=== PATIENT | male | born 1985 | race American Indian/Alaskan Native ===

== ENCOUNTER 2020-01-11 18:29 | Inpatient (IN) | payer OTHER ==
--- NOTE | 2020-01-11 18:38 | Emergency Department Report ---
Blank Doc - Documentation Documentation: 34-year-old male that presents with fatigue and uncontrolled DM. This initial assessment/diagnostic orders/clinical plan/treatment(s) is/are subject to change based on patient's health status, clinical progression and re- assessment by fellow clinical providers in the ED. Further treatment and workup at subsequent clinical providers discretion. Patient/guardians urged not to elope from the ED as their condition may be serious if not clinically assessed and managed. Initial orders include: 1- Patient sent to MAIN ED for further evaluation and treatment 2- labs 3- UA
[2020-01-11 19:44] LABS: Bilirubin,Urine NEG (Negative); Blood,Urine SM (Negative); Color,Urine Straw (Yellow); Mucus,Urine FEW /HPF; Protein,Urine <15 mg/dL mg/dL (Negative); Urobilinogen,Urine < 2.0 mg/dL (<2.0); WBC,Urine < 1.0 /HPF (0.0-6.0)
[2020-01-11 20:55] LABS: Basophils # (Auto) 0.1 K/mm3 (0.0-0.1); Basophils % (Auto) 0.7 % (0.0-1.8); Eosinophils # (Auto) 0.1 K/mm3 (0.0-0.4); Eosinophils % (Auto) 1.7 % (0.0-4.3); Hematocrit 45.6 % (35.5-45.6); Hemoglobin 15.1 gm/dl (11.8-15.2); Lymphocytes # (Auto) 2.1 K/mm3 (1.2-5.4); Lymphocytes % (Auto) 29.4 % (13.4-35.0); Mean Corpuscular HGB Conc 33 % (32-34); Mean Corpuscular Volume 81 fl (84-94); Monocytes # (Auto) 0.8 K/mm3 (0.0-0.8); Monocytes % (Auto) 11.6 % (0.0-7.3); Platelet Count 250 K/mm3 (140-440); Red Blood Count 5.63 M/mm3 (3.65-5.03); Red Cell Distribution Width 12.4 % (13.2-15.2)
[2020-01-11 20:58] LABS: BUN/Creatinine Ratio 12; Blood Urea Nitrogen 16 mg/dL (9-20); Calcium 9.4 mg/dL (8.4-10.2); Hemolysis Index 28
[2020-01-11] MEDS ORDERED: DEXTROSE 50% IN WATER (25GM) 50 ML SYRINGE IV PRN (22:37)
[2020-01-11] MEDS ORDERED: SODIUM CHLORIDE 0.9% 1000 ML 1,000 ML IV ONE ×3 (22:37→22:40)
[2020-01-11] MEDS ORDERED: INSULIN REGULAR, HUMAN 100 UNITS/1 ML IV ONE (22:40)
--- NOTE | 2020-01-11 22:52 | Emergency Department Report ---
ED General Adult HPI - General Chief complaint: Hyperglycemia Stated complaint: SUGAR HIGH Time Seen by Provider: 01/11/20 18:39 Source: patient Mode of arrival: Ambulatory Limitations: No Limitations - History of Present Illness Initial comments: 34-year-old male with no known past medical history presents to the hospital complaining of elevated glucose. 2 weeks ago patient was seen at a clinic and states his sugar was high but was told to decrease his sugar intake in diet. He was not started on meds.Patient has not been monitoring his sugar since that visit. Today he used his dad's Accu-Chek machine and his sugar was 494 at home. Patient has been experiencing increased urinary frequency, thirst, and fatigue. He denies fever, dysuria, nausea, vomiting, or diarrhea. - Related Data Home Medications Medication Instructions Recorded Confirmed Last Taken No Known Home Medications [No 01/11/20 01/11/20 Unknown Reported Home Medications] Allergies Allergy/AdvReac Type Severity Reaction Status Date / Time No Known Allergies Allergy Verified 01/11/20 18:31 ED Review of Systems ROS: Stated complaint: SUGAR HIGH Other details as noted in HPI Comment: All other systems reviewed and negative ED Past Medical Hx - Past Medical History Previous Medical History?: No - Surgical History Past Surgical History?: No - Social History Smoking Status: Current Some Day Smoker Substance Use Type: Alcohol - Medications Home Medications: Home Medications Medication Instructions Recorded Confirmed Last Taken Type No Known Home Medications [No 01/11/20 01/11/20 Unknown History Reported Home Medications] ED Physical Exam - General Limitations: No Limitations - Other Other exam information: General: No acute distress Head: Atraumatic Eyes: normal appearance ENT: Moist mucous membranes Neck: Normal appearance, no midline tenderness Chest: Clear to auscultation bilaterally CV: Regular rate and rhythm Abdomen: Soft, normal bowel sounds, nontender, nondistended, no rebound or guarding Back: Normal inspection Extremity: Normal inspection, full range of motion Neuro: Alert O x 3, no facial asymmetry, speech clear, no gross motor sensory deficit Psych: Appropriate behavior Skin: No rash ED Course Vital Signs 01/11/20 01/11/20 01/11/20 18:38 18:39 22:59 Temperature 98.0 F 98 F Pulse Rate 109 H 110 H Respiratory 20 20 Rate Blood Pressure 147/95 147/95 O2 Sat by Pulse 97 96 98 Oximetry 01/11/20 23:00 Temperature Pulse Rate 109 H Respiratory Rate Blood Pressure O2 Sat by Pulse 98 Oximetry ED Medical Decision Making - Lab Data Result diagrams: 01/11/20 20:18 01/11/20 20:18 Lab Results 01/11/20 01/11/20 01/11/20 Range/Units 18:47 20:18 20:18 WBC 7.0 (4.5-11.0) K/mm3 RBC 5.63 H (3.65-5.03) M/mm3 Hgb 15.1 (11.8-15.2) gm/dl Hct 45.6 (35.5-45.6) % MCV 81 L (84-94) fl MCH 27 L (28-32) pg MCHC 33 (32-34) % RDW 12.4 L (13.2-15.2) % Plt Count 250 (140-440) K/mm3 Lymph % (Auto) 29.4 (13.4-35.0) % [place] % (Auto) 11.6 H (0.0-7.3) % Eos % (Auto) 1.7 (0.0-4.3) % Baso % (Auto) 0.7 (0.0-1.8) % Lymph # 2.1 (1.2-5.4) K/mm3 [place] # 0.8 (0.0-0.8) K/mm3 Eos # 0.1 (0.0-0.4) K/mm3 Baso # 0.1 (0.0-0.1) K/mm3 Seg Neutrophils % 56.6 (40.0-70.0) % Seg Neutrophils # 4.0 (1.8-7.7) K/mm3 VBG pH (7.320-7.420) Sodium 126 L (137-145) mmol/L Potassium 5.6 H (3.6-5.0) mmol/L Chloride 86.5 L (98-107) mmol/L Carbon Dioxide 15 L (22-30) mmol/L Anion Gap 30 mmol/L BUN 16 (9-20) mg/dL Creatinine 1.3 (0.8-1.5) mg/dL Estimated GFR > 60 ml/min BUN/Creatinine Ratio 12 % Glucose 631 H* (75-100) mg/dL POC Glucose 441 H (70-105) Calcium 9.4 (8.4-10.2) mg/dL Urine Color (Yellow) Urine Turbidity (Clear) Urine pH (5.0-7.0) Ur Specific [place] (1.003-1.030) Urine Protein (Negative) mg/dL Urine Glucose (UA) (Negative) mg/dL Urine Ketones (Negative) mg/dL Urine Blood (Negative) Urine Nitrite (Negative) Urine Bilirubin (Negative) Urine Urobilinogen (<2.0) mg/dL Ur Leukocyte Esterase (Negative) Urine WBC (Auto) (0.0-6.0) /HPF Urine RBC (Auto) (0.0-6.0) /HPF Urine Mucus /HPF 01/11/20 01/11/20 01/11/20 Range/Units 20:18 22:53 Unknown WBC (4.5-11.0) K/mm3 RBC (3.65-5.03) M/mm3 Hgb (11.8-15.2) gm/dl Hct (35.5-45.6) % MCV (84-94) fl MCH (28-32) pg MCHC (32-34) % RDW (13.2-15.2) % Plt Count (140-440) K/mm3 Lymph % (Auto) (13.4-35.0) % [place] % (Auto) (0.0-7.3) % Eos % (Auto) (0.0-4.3) % Baso % (Auto) (0.0-1.8) % Lymph # (1.2-5.4) K/mm3 [place] # (0.0-0.8) K/mm3 Eos # (0.0-0.4) K/mm3 Baso # (0.0-0.1) K/mm3 Seg Neutrophils % (40.0-70.0) % Seg Neutrophils # (1.8-7.7) K/mm3 VBG pH 7.248 L (7.320-7.420) Sodium (137-145) mmol/L Potassium (3.6-5.0) mmol/L Chloride (98-107) mmol/L Carbon Dioxide (22-30) mmol/L Anion Gap mmol/L BUN (9-20) mg/dL Creatinine (0.8-1.5) mg/dL Estimated GFR ml/min BUN/Creatinine Ratio % Glucose (75-100) mg/dL POC Glucose 426 H (70-105) Calcium (8.4-10.2) mg/dL Urine Color Straw (Yellow) Urine Turbidity Clear (Clear) Urine pH 5.0 (5.0-7.0) Ur Specific [place] 1.029 (1.003-1.030) Urine Protein <15 mg/dl (Negative) mg/dL Urine Glucose (UA) >=500 (Negative) mg/dL Urine Ketones 80 (Negative) mg/dL Urine Blood Sm (Negative) Urine Nitrite Neg (Negative) Urine Bilirubin Neg (Negative) Urine Urobilinogen < 2.0 (<2.0) mg/dL Ur Leukocyte Esterase Neg (Negative) Urine WBC (Auto) < 1.0 (0.0-6.0) /HPF Urine RBC (Auto) 2.0 (0.0-6.0) /HPF Urine Mucus Few /HPF - Medical Decision Making Patient apparently with hyperglycemia 2 weeks ago but never started on medications and now presents with DKA. Mild acidosis noted. Insulin bolus initially ordered but canceled. Started on IV insulin drip, normal saline hydration ordered in the ED. Hospitalist to admit - Differential Diagnosis DKA, diabetes, UTI Critical Care Time: No Critical care attestation.: If time is entered above; I have spent that time in minutes in the direct care of this critically ill patient, excluding procedure time. ED Disposition Clinical Impression: DKA (diabetic ketoacidoses), Diabetes mellitus, new onset Disposition: DC-01 TO HOME OR SELFCARE Is pt being admited?: Yes Does the pt Need Aspirin: No Condition: Stable Time of Disposition: 22:48 (Dr Jarrell/hosp)
[2020-01-11] MEDS ORDERED: INSULIN REGULAR, HUMAN 100 UNITS in SODIUM CHLORIDE 0.9% 99 ML IV SCH (23:00)
[2020-01-11] MEDS ORDERED: ONDANSETRON 4 MG/2 ML INJ IV PRN (23:09)
[2020-01-11] MEDS ORDERED: ACETAMINOPHEN 325 MG TAB PO PRN (23:09)
--- NOTE | 2020-01-11 23:15 | History and Physical Report ---
History of Present Illness History of present illness: 34-year-old male with no medical problem comes emergency room for evaluation. He said he was not feeling well, he went to the clinic last week Wednesday, his blood sugar was high, he was told to decrease his sweet intake and also his carbohydrate and increase water intake. He states he has been doing this regimen however his symptoms have not improved. He checked his blood sugar today using his father's glucometer, it read high. He is also been having urinary frequency thirst fatigue. In the emergency room was found to be in DKA, started on insulin drip, patient will be admitted for further care Review Of Systems: Constitutional: no weight loss, fever, chills Ears, eyes, nose, mouth and throat: no nasal congestion, no nasal discharge, no sinus pressure, blurry vision, diplopia Neck: No neck pain or rigidity. Cardiovascular: No palpitations, chest pain Respiratory: No shortness of breath, cough Gastrointestinal: No hematochezia Genitourinary : no dysuria, frequency Musculoskeletal: no muscle ache , joint pain Integumentary: no rash, no pruritis Neurological: no parathesias, focal weakness Endocrine: no cold or heat intolerance Hematologic/Lymphatic: no easy bruising, no easy bleeding, no gland swelling Allergic/Immunologic: no urticaria, no angioedema. PAST MEDICAL HISTORY: None PAST SURGICAL HISTORY: None SOCIAL HISTORY: Denies alcohol, drugs, smokes 1-1/2 packs a day FAMILY HISTORY: Hypertension Medications and Allergies Allergies Allergy/AdvReac Type Severity Reaction Status Date / Time No Known Allergies Allergy Verified 01/11/20 18:31 Home Medications Medication Instructions Recorded Confirmed Last Taken Type Insulin NPH/Regular [NovoLIN 70/30] 25 unit SUB-Q 1200 #1 vial 01/14/20 Unknown Rx Active Meds: Active Medications Acetaminophen (Tylenol) 650 mg PO Q4H PRN PRN Reason: Pain MILD(1-3)/Fever >100.5/HAQ Dextrose (D50w (25gm) Syringe) 0 ml IV Q30MIN PRN; Protocol PRN Reason: Hypoglycemia Enoxaparin Sodium (Enoxaparin) 30 mg SUB-Q QDAY MEKA Insulin Human Regular 100 (units/ Sodium Chloride) 100 mls @ 1 mls/hr IV TITR MEKA; Protocol Sodium Chloride (Nacl 0.9% 1000 Ml) 1,000 mls @ 999 mls/hr IV BOLUS ONE Stop: 01/11/20 23:37 Sodium Chloride (Nacl 0.9% 1000 Ml) 1,000 mls @ 999 mls/hr IV BOLUS ONE Stop: 01/11/20 23:40 Sodium Chloride (Nacl 0.9% 1000 Ml) 1,000 mls @ 999 mls/hr IV BOLUS ONE Stop: 01/11/20 23:40 Sodium Chloride (Nacl 0.9% 1000 Ml) 1,000 mls @ 150 mls/hr IV DIRECT MEKA Dextrose/Sodium Chloride (D5/0.45ns) 1,000 mls @ 150 mls/hr IV DIRECT MEKA Ondansetron HCl (Zofran) 4 mg IV Q8H PRN PRN Reason: Nausea And Vomiting Sodium Chloride (Sodium Chloride Flush Syringe 10 Ml) 10 ml IV BID MEKA Sodium Chloride (Sodium Chloride Flush Syringe 10 Ml) 10 ml IV PRN PRN PRN Reason: LINE FLUSH Exam - Physical Exam Narrative exam: Gen. appearance: Patient lying in bed, no apparent distress HEENT: Normocephalic, atraumatic, pupils equally round and reactive to light, extraocular movement intact, and no sclericterus,. No JVD or thyromegaly or nodule,neck supple, no carotid bruit ,mucous membranes moist, no exudate or erythema Heart: S1, S2, regular rate and rhythm Lungs: Clear bilaterally, breathing comfortable Abdomen: Positive bowel sounds, nontender, nondistended, no organomegaly Extremity: no edema, cyanosis, clubbing Skin: No rash, nodules, warm, dry Neuro: Cranial nerves II to XII intact, speech is fluent, moves extremities, sensory intact - Constitutional Vitals: Temp Pulse Resp BP Pulse Ox 98 F 109 H 20 147/95 98 01/11/20 18:39 01/11/20 23:00 01/11/20 18:39 01/11/20 18:39 01/11/20 23:00 Results - Labs CBC & Chem 7: 01/11/20 20:18 01/13/20 12:00 Labs: Abnormal lab results 01/11/20 01/11/20 01/11/20 Range/Units 18:47 20:18 20:18 RBC 5.63 H (3.65-5.03) M/mm3 MCV 81 L (84-94) fl MCH 27 L (28-32) pg RDW 12.4 L (13.2-15.2) % [place] % (Auto) 11.6 H (0.0-7.3) % VBG pH (7.320-7.420) Sodium 126 L (137-145) mmol/L Potassium 5.6 H (3.6-5.0) mmol/L Chloride 86.5 L (98-107) mmol/L Carbon Dioxide 15 L (22-30) mmol/L Glucose 631 H* (75-100) mg/dL POC Glucose 441 H (70-105) 01/11/20 01/11/20 Range/Units 20:18 22:53 RBC (3.65-5.03) M/mm3 MCV (84-94) fl MCH (28-32) pg RDW (13.2-15.2) % [place] % (Auto) (0.0-7.3) % VBG pH 7.248 L (7.320-7.420) Sodium (137-145) mmol/L Potassium (3.6-5.0) mmol/L Chloride (98-107) mmol/L Carbon Dioxide (22-30) mmol/L Glucose (75-100) mg/dL POC Glucose 426 H (70-105) Assessment and Plan Assessment DKA/new onset diabetes Start DKA protocol with insulin drip Start IV fluids, check serial chemistry, blood sugar Check hemoglobin A1c, consult dietitian, critical care Hyperkalemia Monitor potassium level Pseudohyponatremia IV fluid, monitor chemistry DVT prophylaxis
[2020-01-11] MEDS ORDERED: D5W/0.45% NACL 1,000 ML IV SCH (23:45)
[2020-01-12 01:12] LABS: BUN/Creatinine Ratio 13; Blood Urea Nitrogen 17 mg/dL (9-20); Calcium 9.2 mg/dL (8.4-10.2); Hemolysis Index 23
[2020-01-12] MEDS: SODIUM CHLORIDE 0.9% 1000 ML 1,000 ML IV SCH ×2 (01:26→23:09)
[2020-01-12] MEDS ORDERED: D5W/0.45% NACL/KCL 20 MEQ 20 MEQ/1,000 ML BAG IV ONE ×2 (02:40→11:03)
[2020-01-12] MEDS: D5W/0.45% NACL/KCL 20 MEQ 20 MEQ/1,000 ML BAG IV SCH ×2 (03:00→11:12)
[2020-01-12 03:03] LABS: BUN/Creatinine Ratio 12; Blood Urea Nitrogen 14 mg/dL (9-20); Calcium 8.5 mg/dL (8.4-10.2); Hemolysis Index 12
[2020-01-12 05:51] LABS: BUN/Creatinine Ratio 12; Blood Urea Nitrogen 12 mg/dL (9-20); Calcium 8.7 mg/dL (8.4-10.2); Hemolysis Index 14
[2020-01-12 07:36] LABS: BUN/Creatinine Ratio 11; Blood Urea Nitrogen 11 mg/dL (9-20); Calcium 8.8 mg/dL (8.4-10.2); Hemolysis Index 6
[2020-01-12] MEDS ORDERED: ENOXAPARIN 30 MG/0.3 ML INJ SUB-Q SCH (10:00)
[2020-01-12] MEDS ORDERED: ENOXAPARIN 40 MG/0.4 ML INJ SUB-Q ONE (11:08)
[2020-01-12] MEDS: ENOXAPARIN 40 MG/0.4 ML INJ SUB-Q SCH (11:13)
[2020-01-12 11:25] LABS: BUN/Creatinine Ratio 10; Blood Urea Nitrogen 9 mg/dL (9-20); Calcium 8.7 mg/dL (8.4-10.2); Hemolysis Index 32
[2020-01-12 16:00] LABS: BUN/Creatinine Ratio 9; Blood Urea Nitrogen 7 mg/dL (9-20); Calcium 8.9 mg/dL (8.4-10.2); Hemolysis Index 4
--- NOTE | 2020-01-12 18:33 | Progress Note ---
Assessment and Plan - Patient Problems (1) DKA (diabetic ketoacidoses) Current Visit: Yes Status: Acute Plan to address problem: Patient DKA has resolved. Gap is closed. Electrolytes within normal limits. Patient Accu-Cheks remain suboptimally controlled. Will increase 7030 to 23 units twice daily. Will further titrate up for weight-based. We will treat on the low side to ensure prevention of hypoglycemia. Anticipated discharge is a.m. Patient told Porten to follow with primary care physician to continue insulin regime (2) Diabetes mellitus, new onset Current Visit: Yes Status: Acute Plan to address problem: Patient new onset diabetes. Will further change and titrate insulin accordingly. Subjective Date of service: 01/12/20 Principal diagnosis: DKA Interval history: Patient 44-year-old male presented to ED with polyuria polydipsia. Found to be in DKA. Patient was started on insulin drip with Accu-Cheks of 637. Now on follow-up. Patient is gap is closed no longer acidotic no longer in DKA will place patient on insulin 70/30 and sliding scale insulin. Patient no longer needs to have insulin drip. Objective - Constitutional Vitals: Vital Signs - 12hr 01/12/20 01/12/20 01/12/20 07:00 08:00 09:00 Pulse Rate 74 66 72 Respiratory Rate Blood Pressure 123/77 123/83 130/86 Blood Pressure [Left] O2 Sat by Pulse Oximetry 01/12/20 01/12/20 01/12/20 10:00 11:00 11:07 Pulse Rate 68 69 69 Respiratory 16 Rate Blood Pressure 112/59 117/77 Blood Pressure 117/77 [Left] O2 Sat by Pulse 97 84 Oximetry 01/12/20 01/12/20 01/12/20 12:00 13:00 14:00 Pulse Rate 64 72 87 Respiratory Rate Blood Pressure 133/84 131/78 132/73 Blood Pressure [Left] O2 Sat by Pulse 98 99 98 Oximetry 01/12/20 01/12/20 01/12/20 15:00 16:00 17:00 Pulse Rate 65 67 70 Respiratory Rate Blood Pressure 127/77 137/81 127/73 Blood Pressure [Left] O2 Sat by Pulse 99 100 96 Oximetry 01/12/20 18:00 Pulse Rate 75 Respiratory Rate Blood Pressure 138/82 Blood Pressure [Left] O2 Sat by Pulse 98 Oximetry General appearance: Present: no acute distress, well-nourished - EENT Eyes: PERRL, EOM intact ENT: hearing intact, clear oral mucosa Ears: bilateral: normal - Neck Neck: supple, normal ROM - Respiratory Respiratory effort: normal Respiratory: bilateral: CTA - Breasts Breasts: normal - Cardiovascular Rhythm: regular Heart Sounds: Present: S1 & S2. Absent: gallop, rub Extremities: pulses intact, No edema, normal color, Full ROM - Gastrointestinal General gastrointestinal: Present: soft, non-tender, non-distended, normal bowel sounds - Genitourinary Male genitourinary: normal - Integumentary Integumentary: clear, warm, dry - Musculoskeletal Musculoskeletal: 1, strength equal bilaterally - Neurologic Neurologic: moves all extremities - Psychiatric Psychiatric: memory intact, appropriate mood/affect, intact judgment & insight - Labs CBC & Chem 7: 01/11/20 20:18 01/13/20 05:48 Labs: Abnormal lab results 01/11/20 01/11/20 01/11/20 Range/Units 18:47 20:18 20:18 RBC 5.63 H (3.65-5.03) M/mm3 MCV 81 L (84-94) fl MCH 27 L (28-32) pg RDW 12.4 L (13.2-15.2) % [place] % (Auto) 11.6 H (0.0-7.3) % VBG pH (7.320-7.420) Sodium 126 L (137-145) mmol/L Potassium 5.6 H (3.6-5.0) mmol/L Chloride 86.5 L (98-107) mmol/L Carbon Dioxide 15 L (22-30) mmol/L BUN (9-20) mg/dL Glucose 631 H* (75-100) mg/dL POC Glucose 441 H (70-105) Hemoglobin A1c (4-6) % 01/11/20 01/11/20 01/12/20 Range/Units 20:18 22:53 00:02 RBC (3.65-5.03) M/mm3 MCV (84-94) fl MCH (28-32) pg RDW (13.2-15.2) % [place] % (Auto) (0.0-7.3) % VBG pH 7.248 L (7.320-7.420) Sodium (137-145) mmol/L Potassium (3.6-5.0) mmol/L Chloride (98-107) mmol/L Carbon Dioxide (22-30) mmol/L BUN (9-20) mg/dL Glucose (75-100) mg/dL POC Glucose 426 H (70-105) Hemoglobin A1c 13.2 H (4-6) % 01/12/20 01/12/20 01/12/20 Range/Units 00:08 00:34 01:37 RBC (3.65-5.03) M/mm3 MCV (84-94) fl MCH (28-32) pg RDW (13.2-15.2) % [place] % (Auto) (0.0-7.3) % VBG pH (7.320-7.420) Sodium 134 L D (137-145) mmol/L Potassium (3.6-5.0) mmol/L Chloride 96.7 L (98-107) mmol/L Carbon Dioxide 16 L (22-30) mmol/L BUN (9-20) mg/dL Glucose 374 H (75-100) mg/dL POC Glucose 369 H 262 H (70-105) Hemoglobin A1c (4-6) % 01/12/20 01/12/20 01/12/20 Range/Units 02:35 02:39 03:43 RBC (3.65-5.03) M/mm3 MCV (84-94) fl MCH (28-32) pg RDW (13.2-15.2) % [place] % (Auto) (0.0-7.3) % VBG pH (7.320-7.420) Sodium 136 L (137-145) mmol/L Potassium (3.6-5.0) mmol/L Chloride (98-107) mmol/L Carbon Dioxide 16 L (22-30) mmol/L BUN (9-20) mg/dL Glucose 223 H (75-100) mg/dL POC Glucose 232 H 185 H (70-105) Hemoglobin A1c (4-6) % 01/12/20 01/12/20 01/12/20 Range/Units 04:39 05:13 05:38 RBC (3.65-5.03) M/mm3 MCV (84-94) fl MCH (28-32) pg RDW (13.2-15.2) % [place] % (Auto) (0.0-7.3) % VBG pH (7.320-7.420) Sodium 136 L (137-145) mmol/L Potassium (3.6-5.0) mmol/L Chloride (98-107) mmol/L Carbon Dioxide 15 L (22-30) mmol/L BUN (9-20) mg/dL Glucose 200 H (75-100) mg/dL POC Glucose 248 H 233 H (70-105) Hemoglobin A1c (4-6) % 01/12/20 01/12/20 01/12/20 Range/Units 06:37 07:10 08:07 RBC (3.65-5.03) M/mm3 MCV (84-94) fl MCH (28-32) pg RDW (13.2-15.2) % [place] % (Auto) (0.0-7.3) % VBG pH (7.320-7.420) Sodium (137-145) mmol/L Potassium (3.6-5.0) mmol/L Chloride (98-107) mmol/L Carbon Dioxide 18 L (22-30) mmol/L BUN (9-20) mg/dL Glucose 164 H (75-100) mg/dL POC Glucose 194 H 183 H (70-105) Hemoglobin A1c (4-6) % 01/12/20 01/12/20 01/12/20 Range/Units 09:14 09:16 10:32 RBC (3.65-5.03) M/mm3 MCV (84-94) fl MCH (28-32) pg RDW (13.2-15.2) % [place] % (Auto) (0.0-7.3) % VBG pH (7.320-7.420) Sodium (137-145) mmol/L Potassium (3.6-5.0) mmol/L Chloride (98-107) mmol/L Carbon Dioxide 17 L (22-30) mmol/L BUN (9-20) mg/dL Glucose 161 H (75-100) mg/dL POC Glucose 181 H 171 H (70-105) Hemoglobin A1c (4-6) % 01/12/20 01/12/20 01/12/20 Range/Units 10:33 10:34 12:56 RBC (3.65-5.03) M/mm3 MCV (84-94) fl MCH (28-32) pg RDW (13.2-15.2) % [place] % (Auto) (0.0-7.3) % VBG pH (7.320-7.420) Sodium (137-145) mmol/L Potassium (3.6-5.0) mmol/L Chloride (98-107) mmol/L Carbon Dioxide (22-30) mmol/L BUN (9-20) mg/dL Glucose (75-100) mg/dL POC Glucose 275 H 290 H 292 H (70-105) Hemoglobin A1c (4-6) % 01/12/20 01/12/20 01/12/20 Range/Units 12:59 13:04 14:45 RBC (3.65-5.03) M/mm3 MCV (84-94) fl MCH (28-32) pg RDW (13.2-15.2) % [place] % (Auto) (0.0-7.3) % VBG pH (7.320-7.420) Sodium 136 L (137-145) mmol/L Potassium (3.6-5.0) mmol/L Chloride (98-107) mmol/L Carbon Dioxide 19 L (22-30) mmol/L BUN 7 L (9-20) mg/dL Glucose 212 H (75-100) mg/dL POC Glucose 345 H 200 H (70-105) Hemoglobin A1c (4-6) % 01/12/20 01/12/20 01/12/20 Range/Units 14:45 15:00 17:43 RBC (3.65-5.03) M/mm3 MCV (84-94) fl MCH (28-32) pg RDW (13.2-15.2) % [place] % (Auto) (0.0-7.3) % VBG pH 7.245 L (7.320-7.420) Sodium (137-145) mmol/L Potassium (3.6-5.0) mmol/L Chloride (98-107) mmol/L Carbon Dioxide (22-30) mmol/L BUN (9-20) mg/dL Glucose 213 H (75-100) mg/dL POC Glucose 242 H (70-105) Hemoglobin A1c (4-6) %
[2020-01-12] MEDS ORDERED: DEXTROSE 50% IN WATER (25GM) 50 ML SYRINGE IV PRN (18:36)
[2020-01-12 22:39] LABS: BUN/Creatinine Ratio 9; Blood Urea Nitrogen 8 mg/dL (9-20); Calcium 9.1 mg/dL (8.4-10.2); Hemolysis Index 9
[2020-01-12] MEDS: INSULIN LISPRO 100 UNIT/ML SUB-Q SCH (23:08)
[2020-01-13 00:11] LABS: BUN/Creatinine Ratio 9; Blood Urea Nitrogen 7 mg/dL (9-20); Calcium 8.7 mg/dL (8.4-10.2); Hemolysis Index 5
[2020-01-13 06:34] LABS: BUN/Creatinine Ratio 9; Blood Urea Nitrogen 7 mg/dL (9-20); Calcium 8.6 mg/dL (8.4-10.2); Hemolysis Index 4
[2020-01-13] MEDS: INSULIN LISPRO 100 UNIT/ML SUB-Q SCH ×4 (08:05→22:19)
[2020-01-13] MEDS: SODIUM CHLORIDE 0.9% 1000 ML 1,000 ML IV SCH ×2 (08:26→15:33)
--- NOTE | 2020-01-13 09:56 | Progress Note ---
Assessment and Plan - Patient Problems (1) DKA (diabetic ketoacidoses) Current Visit: Yes Status: Acute Plan to address problem: Patient DKA has resolved. Gap is closed. Electrolytes within normal limits. Patient Accu-Cheks remain suboptimally controlled. Will increase 7030 to 23 units twice daily. Will further titrate up for weight-based. We will treat on the low side to ensure prevention of hypoglycemia. Anticipated discharge is a.m. Patient told Kenaen to follow with primary care physician to continue insulin regime (2) Diabetes mellitus, new onset Current Visit: Yes Status: Acute History Interval history: Patient improved today. No more nausea no polyuria no polydipsia. Gap is closed. Hospital course uncomplicated. Patient tolerated subcutaneous insulin. Hospitalist Physical - Constitutional Vitals: Temp Pulse Resp BP Pulse Ox 98.4 F 85 18 107/57 97 01/13/20 03:26 01/13/20 08:27 01/13/20 03:26 01/13/20 08:27 01/13/20 08:27 General appearance: Present: no acute distress, well-nourished - EENT Eyes: Present: PERRL, EOM intact ENT: hearing intact, clear oral mucosa, dentition normal - Neck Neck: Present: supple, normal ROM - Respiratory Respiratory: bilateral: CTA - Cardiovascular Rhythm: regular - Extremities Extremities: no ischemia, pulses intact, pulses symmetrical Peripheral Pulses: within normal limits - Abdominal General gastrointestinal: soft, non-tender, non-distended - Integumentary Integumentary: Present: clear, warm, dry - Psychiatric Psychiatric: appropriate mood/affect, intact judgment & insight, memory intact - Neurologic Neurologic: CNII-XII intact, moves all extremities Results - Labs CBC & Chem 7: 01/11/20 20:18 01/13/20 05:48 Labs: Laboratory Last Values WBC 7.0 K/mm3 (4.5-11.0) 01/11/20 20:18 RBC 5.63 M/mm3 (3.65-5.03) H 01/11/20 20:18 Hgb 15.1 gm/dl (11.8-15.2) 01/11/20 20:18 Hct 45.6 % (35.5-45.6) 01/11/20 20:18 MCV 81 fl (84-94) L 01/11/20 20:18 MCH 27 pg (28-32) L 01/11/20 20:18 MCHC 33 % (32-34) 01/11/20 20:18 RDW 12.4 % (13.2-15.2) L 01/11/20 20:18 Plt Count 250 K/mm3 (140-440) 01/11/20 20:18 Lymph % (Auto) 29.4 % (13.4-35.0) 01/11/20 20:18 Forrest % (Auto) 11.6 % (0.0-7.3) H 01/11/20 20:18 Eos % (Auto) 1.7 % (0.0-4.3) 01/11/20 20:18 Baso % (Auto) 0.7 % (0.0-1.8) 01/11/20 20:18 Lymph # 2.1 K/mm3 (1.2-5.4) 01/11/20 20:18 Forrest # 0.8 K/mm3 (0.0-0.8) 01/11/20 20:18 Eos # 0.1 K/mm3 (0.0-0.4) 01/11/20 20:18 Baso # 0.1 K/mm3 (0.0-0.1) 01/11/20 20:18 Seg Neutrophils % 56.6 % (40.0-70.0) 01/11/20 20:18 Seg Neutrophils # 4.0 K/mm3 (1.8-7.7) 01/11/20 20:18 VBG pH 7.245 (7.320-7.420) L 01/12/20 15:00 Sodium 135 mmol/L (137-145) L 01/13/20 05:48 Potassium 4.2 mmol/L (3.6-5.0) 01/13/20 05:48 Chloride 99.8 mmol/L (98-107) 01/13/20 05:48 Carbon Dioxide 19 mmol/L (22-30) L 01/13/20 05:48 Anion Gap 20 mmol/L 01/13/20 05:48 BUN 7 mg/dL (9-20) L 01/13/20 05:48 Creatinine 0.8 mg/dL (0.8-1.5) 01/13/20 05:48 Estimated GFR > 60 ml/min 01/13/20 05:48 BUN/Creatinine Ratio 9 % 01/13/20 05:48 Glucose 322 mg/dL (75-100) H 01/13/20 05:48 POC Glucose 271 (70-105) H 01/13/20 08:11 Hemoglobin A1c 13.2 % (4-6) H 01/12/20 00:02 Calcium 8.6 mg/dL (8.4-10.2) 01/13/20 05:48 Phosphorus 2.70 mg/dL (2.5-4.5) 01/12/20 07:10 Magnesium 1.70 mg/dL (1.7-2.3) 01/12/20 07:10 Urine Color Straw (Yellow) 01/11/20 Unknown Urine Turbidity Clear (Clear) 01/11/20 Unknown Urine pH 5.0 (5.0-7.0) 01/11/20 Unknown Ur Specific [place] 1.029 (1.003-1.030) 01/11/20 Unknown Urine Protein <15 mg/dl mg/dL (Negative) 01/11/20 Unknown Urine Glucose (UA) >=500 mg/dL (Negative) 01/11/20 Unknown Urine Ketones 80 mg/dL (Negative) 01/11/20 Unknown Urine Blood Sm (Negative) 01/11/20 Unknown Urine Nitrite Neg (Negative) 01/11/20 Unknown Urine Bilirubin Neg (Negative) 01/11/20 Unknown Urine Urobilinogen < 2.0 mg/dL (<2.0) 01/11/20 Unknown Ur Leukocyte Esterase Neg (Negative) 01/11/20 Unknown Urine WBC (Auto) < 1.0 /HPF (0.0-6.0) 01/11/20 Unknown Urine RBC (Auto) 2.0 /HPF (0.0-6.0) 01/11/20 Unknown Urine Mucus Few /HPF 01/11/20 Unknown Jorgensen/IV: Voiding Method Toilet IV Catheter Type [Right INT / Saline Lock Forearm] Active Medications - Current Medications Current Medications: Generic Name Dose Route Start Last Admin Trade Name Freq PRN Reason Stop Dose Admin Acetaminophen 650 mg 01/11/20 23:09 Tylenol PO Q4H PRN Pain MILD(1-3)/Fever >100.5/HAQ Dextrose 0 ml 01/11/20 22:37 D50w (25gm) Syringe IV Q30MIN PRN Hypoglycemia Protocol Enoxaparin Sodium 40 mg 01/12/20 10:00 01/12/20 11:13 Enoxaparin SUB-Q 40 mg QDAY@1000 MEKA Administration Sodium Chloride 1,000 mls @ 150 mls/hr 01/11/20 23:15 01/13/20 08:26 Nacl 0.9% 1000 Ml IV 150 mls/hr DIRECT MEKA Administration Insulin Human Isoph/Insulin Regular 23 unit 01/13/20 12:00 Humulin 70/30 SUB-Q 1200 MEKA Insulin Human Lispro 0 unit 01/12/20 22:00 01/12/20 23:08 Humalog SUB-Q 6 unit ACHS MEKA Administration Protocol Ondansetron HCl 4 mg 01/11/20 23:09 Zofran IV Q8H PRN Nausea And Vomiting Pneumococcal 13-Valent Conj Vacc 0.5 ml 01/13/20 12:00 Prevnar 13 IM 01/13/20 12:01 .ONCE ONE Sodium Chloride 10 ml 01/12/20 10:00 01/12/20 23:09 Sodium Chloride Flush Syringe 10 Ml IV 10 ml BID MEKA Administration Sodium Chloride 10 ml 01/11/20 23:09 Sodium Chloride Flush Syringe 10 Ml IV PRN PRN LINE FLUSH Nutrition/Malnutrition Assess - Dietary Evaluation Nutrition/Malnutrition Findings: Nutrition Notes Start: 01/12/20 08:25 Freq: Status: Active Protocol: Document 01/13/20 08:58 LP (Rec: 01/13/20 09:00 LP [id number]) Nutrition Notes Need for Assessment generated from: MD Order,Education Initial or Follow up Brief Note Current Diagnosis Diabetes Subjective/Other Information Pt states new to DM. Pt consuming some sugary drinks and sweets. #1 Nutrition Diagnosis Food and nutrition-related knowledge deficit Etiology DM As Evidenced by Signs and Symptoms Pt newly dx with DM A1c 13.2 Nutrition Intervention Teaching Recipient Patient Learning Readiness Good Teaching Methods Discussion,Handout Response to Teaching Verbalize understanding Education Handouts Provided Consistent CHO Barriers to Learning No Barriers RD phone number provided Yes Patient aware of follow up options Yes Revisit per MD consult or patient Sign Off request:
[2020-01-13] MEDS: ENOXAPARIN 40 MG/0.4 ML INJ SUB-Q SCH (10:00)
[2020-01-13] MEDS ORDERED: FLU VACC QUAD 2019-20 (3 YR UP)/PF 60 MCG/0.5 ML SYRINGE IM ONE (12:00)
[2020-01-13] MEDS ORDERED: PNEUMOC 13-VAL CONJ-DIP CRM/PF 0.5 ML IM ONE (12:00)
[2020-01-13] MEDS ORDERED: INSULIN NPH/REGULAR 70/30 INJ SUB-Q SCH (12:00)
[2020-01-13] MEDS: INSULIN NPH/REGULAR 70/30 INJ SUB-Q SCH (13:34)
[2020-01-13 19:18] LABS: BUN/Creatinine Ratio 13; Blood Urea Nitrogen 9 mg/dL (9-20); Calcium 8.5 mg/dL (8.4-10.2); Hemolysis Index 9
[2020-01-14] MEDS: SODIUM CHLORIDE 0.9% 1000 ML 1,000 ML IV SCH (07:51)
[2020-01-14] MEDS: INSULIN LISPRO 100 UNIT/ML SUB-Q SCH ×2 (08:00→12:01)
[2020-01-14] MEDS: ENOXAPARIN 40 MG/0.4 ML INJ SUB-Q SCH (09:10)
--- NOTE | 2020-01-14 10:22 | Discharge Summary ---
Providers - Providers Date of Admission: 01/11/20 23:09 Date of discharge: 01/14/20 Attending physician: INDIA LINO 01/11/20 22:37 Consult to Dietitian/Nutrition [CONS] Routine Physician Instructions: Reason For Exam: DKA Reason for Consult: Nutrition Recommendations Reason for Consult: Diet education 01/11/20 23:07 Consult to Physician [CONS] Routine Comment: Consulting Provider: RADHA WARD Physician Instructions: Reason For Exam: cc 01/11/20 23:49 Consult to Dietitian/Nutrition [CONS] Routine Physician Instructions: Reason For Exam: Reason for Consult: Diet education 01/12/20 18:37 Consult to Dietitian/Nutrition [CONS] Routine Physician Instructions: Reason For Exam: Reason for Consult: Nutrition Recommendations Reason for Consult: Diet education Primary care physician: DIRECTOR DATA [employer]CHITECTURE Hospitalization Condition: Good Hospital course: Patient presented with polyuria polydipsia found to be in DKA admitted to the ICU placed on insulin drip. Converted to subcutaneous insulin. Diabetic education complete. Stable for discharge. Electrolytes corrected. Disposition: - TO HOME OR SELFCARE - Discharge Diagnoses (1) DKA (diabetic ketoacidoses) Status: Acute Comment: Patient presented polyuria polydipsia. DKA now resolved. Patient placed on 70/30 insulin 23 units twice daily blood sugars came down to fair control consistently 190 from 600. Additional work-up will be required with outpatient and consider to change patient to p.o. oral hypoglycemics upon discharge and follow-up. (2) Diabetes mellitus, new onset Status: Acute Comment: Is received diabetic education. Pamphlets information follow-up primary care physician [facility]. Core Measure Documentation - Palliative Care Palliative Care/ Comfort Measures: Not Applicable - Core Measures Any of the following diagnoses?: none Exam - Constitutional Vitals: Temp Pulse Resp BP Pulse Ox 98.0 F 76 14 126/68 98 01/14/20 03:20 01/14/20 10:00 01/14/20 10:00 01/14/20 03:20 01/14/20 10:00 General appearance: Present: no acute distress, well-nourished - EENT Eyes: Present: PERRL ENT: hearing intact, clear oral mucosa - Neck Neck: Present: supple, normal ROM - Respiratory Respiratory effort: normal Respiratory: bilateral: CTA - Cardiovascular Heart Sounds: Present: S1 & S2. Absent: rub, click - Extremities Extremities: pulses symmetrical, No edema Peripheral Pulses: within normal limits - Abdominal General gastrointestinal: Present: soft, non-tender, non-distended, normal bowel sounds Male genitourinary: Present: normal - Integumentary Integumentary: Present: clear, warm, dry - Musculoskeletal Musculoskeletal: gait normal, strength equal bilaterally - Psychiatric Psychiatric: appropriate mood/affect, intact judgment & insight - Neurologic Neurologic: CNII-XII intact, moves all extremities Plan Activity: no restrictions Diet: diabetic Special Instructions: record blood sugar diary Follow up with: PRIMARY CARE, [Primary Care Provider] - 3-5 Days Prescriptions: Insulin NPH/Regular [NovoLIN 70/30] 25 unit SUB-Q 1200 #1 vial
[2020-01-14 11:37] VITALS: BP 130/79
[2020-01-14] MEDS: INSULIN NPH/REGULAR 70/30 INJ SUB-Q SCH (12:50)
== END 2020-01-14 15:21 | disposition home or self-care (01) | DRG 638 ==
LOC: ED 18:29 → CC1 23:09 → 4A 01-12 12:30 → CC1 01-12 12:31 → IMCU 01-12 19:34 → 4A 01-12 20:04
PROVIDERS: ADMIT Internal Medicine; ATTEND Internal Medicine
PROC: 3E0234Z Introduction of Serum, Toxoid and Vaccine into Muscle, Percutaneous Approach (ICD-10-PCS; principal; 2020-01-13)
DX: E11.10 Type 2 diabetes mellitus with ketoacidosis without coma (principal); E87.1 Hypo-osmolality and hyponatremia; E87.5 Hyperkalemia; Z23 Encounter for immunization; Z82.49 Family history of ischemic heart disease and other diseases of the circulatory system
CPT/HCPCS: 36415; 80048; 81001; 82805; 82947; 82962; 83036; 83735; 84100; 85025; 90670; 90686; G0378; J1650; J1815; J7030